=== PATIENT | male | born 2005 | race Caucasian/White ===

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

== ENCOUNTER 2023-08-14 16:39 | Emergency (ER) | payer MEDICAID ==
[~2023-08-14] VITALS: Ht 182.9 cm; Wt 68.0 kg
[2023-08-14 16:47] VITALS: BP_SYST 125; PULSE 85; RESP 18; TEMP 98.3; O2SAT 98
[2023-08-14] MEDS ORDERED: IBUP-1969 PO (17:15)
[2023-08-14 17:50] VITALS: BP_SYST 125; PULSE 85; RESP 18; TEMP 98.3; O2SAT 98
== END 2023-08-14 17:45 | disposition home or self-care (01) ==
LOC: SED 16:39
DX: S02.2XXA Fracture of nasal bones, initial encounter for closed fracture (principal); Z79.899 Other long term (current) drug therapy; W20.8XXA Other cause of strike by thrown, projected or falling object, initial encounter; Y93.89 Activity, other specified; Y92.89 Other specified places as the place of occurrence of the external cause; Y99.8 Other external cause status
CPT/HCPCS: 99282

== ENCOUNTER 2024-01-18 19:59 | Emergency (ER) | payer MEDICAID ==
[~2024-01-18] VITALS: Ht 182.9 cm; Wt 73.0 kg
[~2024-01-18 19:59] MED LIST changes: +IBUP-1969 PO
[2024-01-18 20:18] VITALS: BP_SYST 145; PULSE 99; RESP 16; TEMP 99.7; O2SAT 100
[2024-01-18] MEDS ORDERED: OLOP5DRO20 BOTH EYES (21:19)
[2024-01-18] MEDS ORDERED: SULF15DR6 EACH EYE (21:19)
== END 2024-01-18 21:40 | disposition home or self-care (01) ==
LOC: SED 19:59
DX: H10.89 Other conjunctivitis (principal); Z79.899 Other long term (current) drug therapy
CPT/HCPCS: 99283